=== PATIENT | male | born 2000 | race Caucasian/White ===

== ENCOUNTER → 2021-10-02 | Emergency (ER) | payer SELFPAY ==
[~2021-10-02] VITALS: Ht 177.8 cm; Wt 72.7 kg
[~2021-10-02] MED LIST: FLEXERIL 1010 MG/TAB PO
[2021-10-02 16:27] VITALS: BP 135/76; PULSE 59
== END ==
LOC: COL.ER 16:15
DX: R51.9 Headache, unspecified (principal); M62.838 Other muscle spasm; V89.2XXA Person injured in unspecified motor-vehicle accident, traffic, initial encounter
CPT/HCPCS: J0780; J1885